=== PATIENT | female | born 1990 | race Caucasian/White ===

== ENCOUNTER 2016-05-20 11:58 | Emergency (ER) | payer SELFPAY ==
[2016-05-20 12:05] VITALS: TEMP 98.6; BMI 27.3
[2016-05-20 12:27] LABS: LEUKOCYTES/URINE TRACE (NEGATIVE); RBC/URINE 0-2 (0-5); URINE OCCULT BLOOD 1+ (NEG/TRACE)
[2016-05-20 12:30] LABS: NITRITE/URINE POS (NEGATIVE)
[2016-05-20 12:41] LABS: MPV 8.4 fL (7.4-10.4)
[2016-05-20 12:50] LABS: BLOOD UREA NITROGEN 10 MG/DL (7-17); CALCIUM 9.6 MG/DL (8.4-10.2); CALCULATED OSMOLALITY 267 MOs/Kg (270-290); CHLORIDE 107 mEq/L (98-107); GLUCOSE 99 MG/DL (70-99); SODIUM LEVEL 139 mEq/L (137-146); TOTAL PROTEIN 6.7 G/DL (6.3-8.2)
[2016-05-20 13:07] LABS: SEG NEUTROPHIL 87 % (45-76); TOTAL CELL COUNT 100
--- NOTE | 2016-05-20 13:38 | DIRPT ---
CLINICAL DATA: Right upper quadrant pain for 1 week EXAM: US ABDOMEN LIMITED - RIGHT UPPER QUADRANT COMPARISON: None. FINDINGS: Gallbladder: No gallstones or wall thickening visualized. No sonographic Quigley sign noted by visual arts teacher. Common bile duct: Diameter: 3.9 mm Liver: No focal lesion identified. Within normal limits in parenchymal echogenicity. IMPRESSION: No acute abnormality noted. Electronically Signed By: Rashard Del Cid M.D. On: 05/20/2016 13:36
--- NOTE | 2016-05-20 13:44 | EDPRACDOC ---
- General Information Chief Complaint: Abdominal Pain Stated Complaint: ABDOMINAL PAIN - RLQ Time Seen by Provider: 05/20/16 12:19 Information Source: Patient Mode Of Arrival: Car Home Medications: Home Medications Ciprofloxacin HCl [Cipro] 500 mg PO BID #20 tab 05/20/16 Norethindrone-E.estradiol-Iron [Junel Fe 1 mg-20 Mcg Tablet] 1 tab PO QHS Omeprazole 20 mg PO DAILY PRN 05/20/16 Ondansetron [Zofran Odt] 4 mg PO TID PRN #10 tab.rapdis 05/20/16 Tramadol HCl 50 mg PO Q4-6H PRN #12 tablet 05/20/16 Allergies/Adverse Reactions: Allergies Allergy/AdvReac Type Severity Reaction Status Date / Time aspirin Allergy See Verified 05/20/16 12:03 Comments - History of Present Illness Onset: 0900 HPI: C/O INTERMITTENT RIGHT SIDE ABDO PAIN WITH N/V/D, WORSE AFTER EATING X 1 WEEK. PAIN USUALLY BETTER WITH TYLENOL. DENIES FEVER, CHANGES IN URINE, VAGINAL SX. MED HX = ASHTMA, HEART MURMUR. SURGICAL HX = NONE. Pain Location: Reports: RUQ Pain Context: Reports: After Eating Pain Severity: Moderate Pain Quality: Reports: Sharp Pain Radiation: Reports: No Radiation Last Menstrual Period: LAST MONTH Blood Type: O+ Adult Abdominal History: Denies: Abdominal Surgery Female Abdominal History: Denies: Abdominal Surgery Modifying Factors: improves with: Other (TYLENOL) Female Associated Signs & Symptoms: Reports: Nausea, Vomiting, Diarrhea Oral Intake: Decreased Urinary Output: Normal ED Past Medical History - History Reviewed Yes Nurses notes reviewed and agree except as marked - Patient Medical History Respiratory History: Reports: Asthma Psychological History: Reports: Depression Systemic History: Denies: Cancer - Family Medical History Reports: Hypertension, Diabetes. Denies: Cancer, Stroke, Cardiac Disorders - Social Medical History Smoking Status: Heavy tobacco smoker (5 or more cigarettes/day or daily pipe/ cigar) EDM Review of Systems - Review of Systems ROS Negative Except as Marked: Yes All systems reviewed and were negative except as marked Gastrointestinal: Diarrhea, Nausea, Pain, Vomiting - Physical Exam Constitutional: Alert Oriented to: Time, Person, Place Last recorded Vital Signs: Last Vital Signs Temp 98.6 F 05/20/16 12:03 Pulse 70 05/20/16 16:16 Resp 20 05/20/16 16:16 BP 120/82 05/20/16 16:16 Pulse Ox 98 05/20/16 16:16 Oxygen Pulse Oxygen Saturation 98 O2 Device Room Air Oxygen Flow Rate Fraction of Inspired Oxygen ( FIO2) - HEENT Head: Normal Eye Exam: negative: Conjunctival Injection, Scleral Icterus Oropharynx: negative: Drooling TMJ: Normal Nose: No Symptoms Reported Neck: Normal - Respiratory/Cardiovascular Respiratory: Normal - CTA Cardiovascular: Normal - GI Auscultation: Normal Palpation: Normal Tenderness: Moderate, RUQ, RLQ Quigley's Sign: Positive - Musculoskeletal Back: CVA Tenderness (right) Extremities: Normal - Integumentary Skin: Normal - Neurologic Mood Description: Normal Thought: Coherent - Results 05/20/16 12:19 05/20/16 12:19 WBC 8.8 xk/uL (3.8-10.8) 05/20/16 12:19 RBC 4.56 xM/uL (4.20-5.40) 05/20/16 12:19 Hgb 13.4 g/dL (12.0-16.0) 05/20/16 12:19 Hct 39.6 % (36-47) 05/20/16 12:19 MCV 87 fL (81-99) 05/20/16 12:19 MCH 29.4 pg (27-32) 05/20/16 12:19 MCHC 33.8 g/dl (33-36) 05/20/16 12:19 RDW 13.3 % (11.5-14.5) 05/20/16 12:19 Plt Count 245 xk/uL (130-400) 05/20/16 12:19 MPV 8.4 fL (7.4-10.4) 05/20/16 12:19 Neut % (Auto) Cancelled 05/20/16 12:19 Lymph % (Auto) Cancelled 05/20/16 12:19 [place] % (Auto) Cancelled 05/20/16 12:19 Eos % (Auto) Cancelled 05/20/16 12:19 Baso % (Auto) Cancelled 05/20/16 12:19 Absolute Neuts (auto) Cancelled 05/20/16 12:19 Absolute Lymphs (auto) Cancelled 05/20/16 12:19 Seg Neuts % (Manual) 87 % (45-76) H 05/20/16 12:19 Band Neutrophils % 7 % (0-5) H 05/20/16 12:19 Lymphocytes % (Manual) 6 % (17-44) L 05/20/16 12:19 Absolute Neutrophils 8.27 xk/uL (1.7-8.2) H 05/20/16 12:19 Absolute Lymphocytes 0.53 xk/uL (0.65-4.75) L 05/20/16 12:19 Platelet Estimate Norm (NORMAL) 05/20/16 12:19 RBC Morphology Norm 05/20/16 12:19 Sodium 139 mEq/L (137-146) 05/20/16 12:19 Potassium 4.0 mEq/L (3.5-5.1) 05/20/16 12:19 Chloride 107 mEq/L (98-107) 05/20/16 12:19 Carbon Dioxide 23 mMOL/L (22-33) 05/20/16 12:19 Anion Gap 13 mEq/L (8-16) 05/20/16 12:19 BUN 10 MG/DL (7-17) 05/20/16 12:19 Creatinine 0.80 MG/DL (0.52-1.04) 05/20/16 12:19 Estimated GFR (MDRD) > 60 mL/min (>=60) 05/20/16 12:19 Glucose 99 MG/DL (70-99) 05/20/16 12:19 Calculated Osmolality 267 MOs/Kg (270-290) L 05/20/16 12:19 Calcium 9.6 MG/DL (8.4-10.2) 05/20/16 12:19 Total Bilirubin 0.8 MG/DL (0.2-1.3) 05/20/16 12:19 AST 16 IU/L (14-36) 05/20/16 12:19 ALT 30 IU/L (9-52) 05/20/16 12:19 Alkaline Phosphatase 67 IU/L (38-126) 05/20/16 12:19 Total Protein 6.7 G/DL (6.3-8.2) 05/20/16 12:19 Albumin 4.0 G/DL (3.5-5.0) 05/20/16 12:19 Urine Color Pale yell0w 05/20/16 12:07 Urine Clarity Hazy 05/20/16 12:07 Urine pH 5.0 (5.0-8.0) 05/20/16 12:07 Ur Specific [place] 1.010 (1.003-1.035) 05/20/16 12:07 Urine Protein Neg (NEG/TRACE) 05/20/16 12:07 Urine Glucose (UA) Neg (NEGATIVE) 05/20/16 12:07 Urine Ketones Neg (NEGATIVE) 05/20/16 12:07 Urine Occult Blood 1+ (NEG/TRACE) H 05/20/16 12:07 Urine Nitrite Pos (NEGATIVE) H 05/20/16 12:07 Urine Bilirubin Neg (NEGATIVE) 05/20/16 12:07 Urine Urobilinogen <2.0 MG/DL (0-1) 05/20/16 12:07 Ur Leukocyte Esterase Trace (NEGATIVE) H 05/20/16 12:07 Urine RBC 0-2 (0-5) 05/20/16 12:07 Urine WBC 5-10 (0-5) H 05/20/16 12:07 Urine WBC Clumps Present (NONE) H 05/20/16 12:07 Ur Epithelial Cells 2+ 05/20/16 12:07 Urine Bacteria 3+ (NEG/FEW) H 05/20/16 12:07 Urine Mucus Mod (NEG/OCC) H 05/20/16 12:07 Urine Test Neg (NEGATIVE) 05/20/16 12:07 Lab Results 05/20/16 05/20/16 05/20/16 12:19 12:19 12:07 WBC 8.8 RBC 4.56 Hgb 13.4 Hct 39.6 MCV 87 MCH 29.4 MCHC 33.8 RDW 13.3 Plt Count 245 MPV 8.4 Neut % (Auto) Cancelled Lymph % (Auto) Cancelled [place] % (Auto) Cancelled Eos % (Auto) Cancelled Baso % (Auto) Cancelled Absolute Neuts (auto) Cancelled Absolute Lymphs (auto) Cancelled Seg Neuts % (Manual) 87 H Band Neutrophils % 7 H Lymphocytes % (Manual) 6 L Absolute Neutrophils 8.27 H Absolute Lymphocytes 0.53 L Platelet Estimate Norm RBC Morphology Norm Sodium 139 Potassium 4.0 Chloride 107 Carbon Dioxide 23 Anion Gap 13 BUN 10 Creatinine 0.80 Estimated GFR (MDRD) > 60 Glucose 99 Calculated Osmolality 267 L Calcium 9.6 Total Bilirubin 0.8 AST 16 ALT 30 Alkaline Phosphatase 67 Total Protein 6.7 Albumin 4.0 Urine Color Pale yell0w Urine Clarity Hazy Urine pH 5.0 Ur Specific [place] 1.010 Urine Protein Neg Urine Glucose (UA) Neg Urine Ketones Neg Urine Occult Blood 1+ H Urine Nitrite Pos H Urine Bilirubin Neg Urine Urobilinogen <2.0 Ur Leukocyte Esterase Trace H Urine RBC 0-2 Urine WBC 5-10 H Urine WBC Clumps Present H Ur Epithelial Cells 2+ Urine Bacteria 3+ H Urine Mucus Mod H Urine Test 05/20/16 12:07 WBC RBC Hgb Hct MCV MCH MCHC RDW Plt Count MPV Neut % (Auto) Lymph % (Auto) [place] % (Auto) Eos % (Auto) Baso % (Auto) Absolute Neuts (auto) Absolute Lymphs (auto) Seg Neuts % (Manual) Band Neutrophils % Lymphocytes % (Manual) Absolute Neutrophils Absolute Lymphocytes Platelet Estimate RBC Morphology Sodium Potassium Chloride Carbon Dioxide Anion Gap BUN Creatinine Estimated GFR (MDRD) Glucose Calculated Osmolality Calcium Total Bilirubin AST ALT Alkaline Phosphatase Total Protein Albumin Urine Color Urine Clarity Urine pH Ur Specific [place] Urine Protein Urine Glucose (UA) Urine Ketones Urine Occult Blood Urine Nitrite Urine Bilirubin Urine Urobilinogen Ur Leukocyte Esterase Urine RBC Urine WBC Urine WBC Clumps Ur Epithelial Cells Urine Bacteria Urine Mucus Urine Test Neg - Diagnostic Imaging Other Image interpreted by: Radiologist 05/20/16 13:41 EXAM: US ABDOMEN LIMITED - RIGHT UPPER QUADRANT COMPARISON: None. FINDINGS: Gallbladder: No gallstones or wall thickening visualized. No sonographic Quigley sign noted by sound person. Common bile duct: Diameter: 3.9 mm Liver: No focal lesion identified. Within normal limits in parenchymal echogenicity. IMPRESSION: No acute abnormality noted. Electronically Signed By: Rashard Del Cid M.D. On: 05/20/2016 13:36 Abdomen Image interpreted by: Radiologist 05/20/16 14:31 EXAM: CT ABDOMEN AND PELVIS WITH CONTRAST TECHNIQUE: Multidetector CT imaging of the abdomen and pelvis was performed using the standard protocol following bolus administration of intravenous contrast. CONTRAST: 100 mL Isovue 370 IV COMPARISON: Right upper quadrant ultrasound earlier today and prior CT on 12/14/2011 FINDINGS: The liver, gallbladder, pancreas, spleen, adrenal glands and kidneys are within normal limits by CT. Bowel shows normal caliber and no evidence of obstruction, ileus or inflammation. No free air. No free fluid or abscess identified. No hernias, masses or enlarged lymph nodes are seen. No vascular abnormalities. The bladder, uterus and adnexal regions are unremarkable by CT. Bony structures are within normal limits. The visualized lung bases are unremarkable. IMPRESSION: Normal CT of the abdomen and pelvis. Electronically Signed By: Rodrick Stover M.D. On: 05/20/2016 14:23 Pelvis Image interpreted by: Radiologist 05/20/16 16:04 EXAM: TRANSABDOMINAL AND TRANSVAGINAL ULTRASOUND OF PELVIS DOPPLER ULTRASOUND OF OVARIES TECHNIQUE: Both transabdominal and transvaginal ultrasound examinations of the pelvis were performed. Transabdominal technique was performed for global imaging of the pelvis including uterus, ovaries, adnexal regions, and pelvic cul-de-sac. It was necessary to proceed with endovaginal exam following the transabdominal exam to visualize the uterus, endometrium, ovaries and adnexa . Color and duplex Doppler ultrasound was utilized to evaluate blood flow to the ovaries. COMPARISON: CT 05/20/2016 FINDINGS: Uterus Measurements: 7.8 x 3.2 x 4.4 cm. No fibroids or other mass visualized. Endometrium Thickness: 1 mm in thickness. No focal abnormality visualized. Right ovary Measurements: 3.3 x 1.6 x 2.1 cm. Normal appearance/no adnexal mass. Left ovary Measurements: 3.1 x 2.2 x 2.2 cm. Normal appearance/no adnexal mass. Other findings No abnormal free fluid. Pulsed Doppler evaluation of both ovaries demonstrates normal low-resistance arterial and venous waveforms. IMPRESSION: Normal pelvic ultrasound. Electronically Signed By: Codey Marte M.D. On: 05/20/2016 15:50 Decision Time to Discharge: 16:05 - Departure Disposition: Home Condition: Stable Final Diagnosis: UTI (urinary tract infection) Qualifiers: Urinary tract infection type: site unspecified Hematuria presence: without hematuria Qualified Code(s): N39.0 - Urinary tract infection, site not specified Instructions: Acute Abdominal Pain (ED), Urinary Tract Infection in Women (ED) , Dysuria Education/Counseling Given To: Patient Education/Counseling Given Regarding: Diagnosis, Treatment, Prognosis, Follow Up Referrals: [place],Peace Devi, MATTE CUTTER [Primary Care Provider] - One Week Prescriptions: Ciprofloxacin HCl [Cipro] 500 mg PO BID #20 tab Ondansetron [Zofran Odt] 4 mg PO TID PRN #10 tab.rapdis PRN Reason: Nausea/Vomiting Tramadol HCl 50 mg PO Q4-6H PRN #12 tablet PRN Reason: Pain Additional Instructions: Follow up with primary care. Return to ED for any new or worsening symptoms.
[2016-05-20] MEDS ORDERED: ONDANSETRON HCL 4 MG/2 ML VIAL IV ONE (13:51)
[2016-05-20] MEDS ORDERED: MORPHINE 4 MG/ML INJECTION IV ONE (13:51)
[2016-05-20] MEDS ORDERED: Pharmacy Review for Metformin - IV Contrast Given SCH (14:00)
--- NOTE | 2016-05-20 14:25 | DIRPT ---
CLINICAL DATA: Right-sided abdominal pain with nausea, vomiting and diarrhea. EXAM: CT ABDOMEN AND PELVIS WITH CONTRAST TECHNIQUE: Multidetector CT imaging of the abdomen and pelvis was performed using the standard protocol following bolus administration of intravenous contrast. CONTRAST: 100 mL Isovue 370 IV COMPARISON: Right upper quadrant ultrasound earlier today and prior CT on 12/14/2011 FINDINGS: The liver, gallbladder, pancreas, spleen, adrenal glands and kidneys are within normal limits by CT. Bowel shows normal caliber and no evidence of obstruction, ileus or inflammation. No free air. No free fluid or abscess identified. No hernias, masses or enlarged lymph nodes are seen. No vascular abnormalities. The bladder, uterus and adnexal regions are unremarkable by CT. Bony structures are within normal limits. The visualized lung bases are unremarkable. IMPRESSION: Normal CT of the abdomen and pelvis. Electronically Signed By: Rodrick Stover M.D. On: 05/20/2016 14:23
[2016-05-20] MEDS ORDERED: MORPHINE 4 MG/ML INJECTION IV PRN (15:52)
--- NOTE | 2016-05-20 15:52 | DIRPT ---
CLINICAL DATA: Abdominal pain, right lower quadrant pain, nausea, vomiting and diarrhea for 1 week. EXAM: TRANSABDOMINAL AND TRANSVAGINAL ULTRASOUND OF PELVIS DOPPLER ULTRASOUND OF OVARIES TECHNIQUE: Both transabdominal and transvaginal ultrasound examinations of the pelvis were performed. Transabdominal technique was performed for global imaging of the pelvis including uterus, ovaries, adnexal regions, and pelvic cul-de-sac. It was necessary to proceed with endovaginal exam following the transabdominal exam to visualize the uterus, endometrium, ovaries and adnexa . Color and duplex Doppler ultrasound was utilized to evaluate blood flow to the ovaries. COMPARISON: CT 05/20/2016 FINDINGS: Uterus Measurements: 7.8 x 3.2 x 4.4 cm. No fibroids or other mass visualized. Endometrium Thickness: 1 mm in thickness. No focal abnormality visualized. Right ovary Measurements: 3.3 x 1.6 x 2.1 cm. Normal appearance/no adnexal mass. Left ovary Measurements: 3.1 x 2.2 x 2.2 cm. Normal appearance/no adnexal mass. Other findings No abnormal free fluid. Pulsed Doppler evaluation of both ovaries demonstrates normal low-resistance arterial and venous waveforms. IMPRESSION: Normal pelvic ultrasound. Electronically Signed By: Codey Marte M.D. On: 05/20/2016 15:50
[2016-05-20 16:18] VITALS: BP 120/82; PULSE 70
== END 2016-05-20 16:16 | disposition home or self-care (01) ==
LOC: ED 11:58
DX: N39.0 Urinary tract infection, site not specified (principal)
CPT/HCPCS: 36415; 74177; 76705; 76830; 76856; 80053; 81001; 81025; 85007; 85027; 93975; 96374; 96375; 99284; A9698; J2270; J2405